=== PATIENT | male | born 1970 | race Two or more races ===

== ENCOUNTER → 2020-10-20 08:00 | Outpatient (CLI) | payer OTHER ==
[~2020-10-20 08:00] MED LIST: METFORMIN HCL1000 M2 PO
== END | disposition home or self-care (01) ==
LOC: ADM 07:15 → LAB 08:00 → EDSTATUS 10-27 07:15 → CIR.AMB 10-27 07:15
PROVIDERS: ATTEND Surgery
DX: N52.8 Other male erectile dysfunction (principal); Z03.818 Encounter for observation for suspected exposure to other biological agents ruled out; Z20.822 Contact with and (suspected) exposure to COVID-19; Z01.810 Encounter for preprocedural cardiovascular examination